=== PATIENT | female | born 1970 | race Caucasian/White ===

== ENCOUNTER → 2019-10-23 12:28 | Outpatient (CLI) | payer BC, SELFPAY ==
--- NOTE | ~2019-10-23 | MM_ITS ---
EXAMINATION: MM screening [facility] BI w olayinka HISTORY: Screening mammogram TECHNIQUE: Craniocaudal and mediolateral oblique 3-D tomosynthesis images were obtained and synthetic 2-D images were generated. CAD analysis was submitted and interpreted. COMPARISON: 10/18/2018, 10/07/1917, 10/14/2016 BREAST PARENCHYMAL COMPOSITION: There are scattered areas of fibroglandular density. FINDINGS: There is a chronic and unchanged asymmetry in the middle third of the left breast on the cr aniocaudal view. There is no evidence of suspicious mass, calcification, or architectural distortion to suggest malignancy in either breast. There has been no suspicious interval change. IMPRESSION: 1. No mammographic evidence of malignancy. 2. Recommend routine screening mammography in one year. BI-RADS Category 2: Benign finding(s). Reviewed, dictated and finalized at location A. LAMINATOR
== END ==
PROVIDERS: PCP Nurse Practitioner Adult Health; Visit Provider Nurse Practitioner
DX: Z12.31 Encounter for screening mammogram for malignant neoplasm of breast (principal)
CPT/HCPCS: 77063; 77067

== ENCOUNTER → 2020-11-02 14:01 | Outpatient (CLI) | payer BC, SELFPAY ==
--- NOTE | ~2020-11-02 | MM_ITS ---
EXAMINATION: MM screening amber BI w olayinka HISTORY: Screening TECHNIQUE: Craniocaudal and mediolateral oblique 3-D tomosynthesis images were obtained and synthetic 2-D images were generated. CAD analysis was submitted and interpreted. COMPARISON: Comparison to multiple prior studies sequentially, with oldest reviewed study dated 10/12. BREAST PARENCHYMAL COMPOSITION: Breast composed of scattered areas of fibroglandular density. FINDINGS: There is no evidence of suspicious mass, calcification, or architectural distortion to sugg est malignancy in either breast. There has been no suspicious interval change. IMPRESSION: 1. No mammographic evidence of malignancy. 2. Recommend routine screening mammography in one year. BI-RADS Category 1: Negative Reviewed, dictated and finalized at location A. DROGENATION OPERATOR
== END ==
PROVIDERS: PCP Nurse Practitioner Adult Health; Visit Provider Nurse Practitioner
DX: Z12.31 Encounter for screening mammogram for malignant neoplasm of breast (principal)
CPT/HCPCS: 77063; 77067

== ENCOUNTER → 2021-09-20 13:25 | Outpatient (CLI) | payer BC, SELFPAY ==
--- NOTE | ~2021-09-20 | US_ITS ---
EXAMINATION: US pelvic complete EXAM DATE: 09/20/2021 13:46 INDICATION: Abnormal uterine bleeding. TECHNIQUE: Pelvic transabdominal sonogram was performed. There are multiple grayscale and Doppler im ages available for interpretation. There is no prior study for comparison. FINDINGS: Uterus measures 9.7 x 4.4 x 5.5 cm, and is morphologically normal. Endometrial stripe ant sures 15 mm, within normal limits for premenopausal status. There is a nabothian cyst measuring 1.9 c m. There is no free pelvic fluid. Right adnexa: The ovary measures 2.9 x 1.8 x 2.2 cm and is morphologically normal. Ovarian vascular f low confirmed. Left adnexa: The ovary measures 2.6 x 1.8 x 2.4 cm and is morphologically normal. Ovarian vascular fl ow confirmed. IMPRESSION: Unremarkable pelvic ultrasound exam. Reviewed, dictated and finalized at location A. RVISOR POLISHING
== END ==
PROVIDERS: Visit Provider Nurse Practitioner
DX: N93.8 Other specified abnormal uterine and vaginal bleeding (principal)
CPT/HCPCS: 76856

== ENCOUNTER → 2021-11-08 13:18 | Outpatient (CLI) | payer BC, SELFPAY ==
--- NOTE | ~2021-11-08 | MM_ITS ---
EXAMINATION: MM screening amber BI w olayinka HISTORY: Screening mammogram TECHNIQUE: Craniocaudal and mediolateral oblique 3-D tomosynthesis images were obtained and synthetic 2-D images were generated. CAD analysis was submitted and interpreted. COMPARISON: November 02, 2020, October 23, 2019, October 18, 2018 bilateral screening mammogram exami [facility] to BREAST PARENCHYMAL COMPOSITION: There are scattered areas of fibroglandular density. FINDINGS: There is asymmetry in the inner aspect of the outer left breast at mid depth on craniocauda l projection, very possibly summation shadow of overlying fibroglandular content; diagnostic left amber mogram is recommended to exclude any possible mass. There is a 4.4 mm nodular density at the posterior margin of the outer left breast on CC projection; rotated craniocaudal view is recommended for further evaluation. Otherwise there is no evidence of suspicious mass, calcification, or architectural distortion to sugg est malignancy in either breast. There has been no other suspicious interval change. IMPRESSION: Left breast mass density; diagnostic left mammogram is recommended, with ultrasound if required BI-RADS Category 0: Incomplete: Needs additional imaging evaluation. Reviewed, dictated and finalized at location A. ETIC GEAR CUSTODIAN IMPRESSION: Left breast mass density; diagnostic left mammogram is recommended, with ultras ound if required BI-RADS Category 0: Incomplete: Needs additional imaging evaluation.
== END ==
PROVIDERS: PCP Nurse Practitioner Adult Health; Visit Provider Nurse Practitioner
DX: Z12.31 Encounter for screening mammogram for malignant neoplasm of breast (principal); R92.8 Other abnormal and inconclusive findings on diagnostic imaging of breast
CPT/HCPCS: 77063; 77067

== ENCOUNTER → 2021-11-19 07:48 | Outpatient (CLI) | payer BC, SELFPAY ==
--- NOTE | ~2021-11-19 | MMUS_ITS ---
EXAMINATION: MM diagnostic amber LT w olayinka, US breast LT limited HISTORY: Left breast asymmetry and left breast mass on screening mammogram TECHNIQUE: Additional 3-D tomosynthesis images of the left breast were performed and synthetic 2-D im ages were generated. CAD analysis was submitted and interpreted. High resolution limited left breast ultrasound was performed. COMPARISON: Prior mammograms dating back to 10/14/2016 FINDINGS: MAMMOGRAPHIC FINDINGS: There is a return to baseline fibroglandular appearance with spot compression of the left breast in t he area of the asymmetry identified on screening mammogram. There is a 6 mm oval, circumscribed, equa l density mass in the far posterior third of the outer breast at the 3:00 location 16 cm from the nip ple. No associated architectural distortion or suspicious calcification are identified. ULTRASOUND: There is no evidence of focal abnormal solid or cystic mass in the vicinity of the mass identified in the posterior third of the outer breast. IMPRESSION: 1. Probably benign left breast mass. 2. Recommend 6 month follow-up left diagnostic mammogram with possible ultrasound. BI-RADS category 3, probably benign findings. Reviewed, dictated and finalized at location A. CITOR REPAIRER IMPRESSION: 1. Probably benign left breast mass. 2. Recommend 6 month follow-up left diagnostic mammogram with possible ultrasou nd. BI-RADS category 3, probably benign findings.
== END ==
PROVIDERS: PCP Nurse Practitioner Adult Health; Visit Provider Obstetrics & Gynecology Gynecology
DX: R92.8 Other abnormal and inconclusive findings on diagnostic imaging of breast (principal)
CPT/HCPCS: 76642; 77061; 77065; G0279

== ENCOUNTER 2022-01-24 00:39 | Day surgery (SDC) | payer BC, SELFPAY ==
[2022-01-06 08:50] VITALS: BMI 28.0
--- NOTE | 2022-01-21 15:08 | PM.HPGS ---
History of Present Illness History of Present Illness Consent: Risks, benefits, and alternatives have been discussed and questions answered. Patient agrees to proceed with procedure. Chief complaint: family hx of colon ca Narrative: Amy Caraballo is a 51 year old female Referred for colon cancer screening. her father had colon cancer. She had a small polyp removed from the rectum 5 years ago. Review of Systems Review of Systems: All systems reviewed & are unremarkable except as noted in HPI and below PMFSH Family History Family History Grandparent Carcinoma of colon Family history of Hodgkin's lymphoma Father Family history of diabetes mellitus in first degree relative Mother Family history of emphysema Other Family history of malignant neoplasm of male breast Social History Social History Smoking status: Never smoker Alcohol intake: never Substance use: never Substance use type: does not use Living arrangements: with family Spiritual care concerns: No Meds Home Medications and Allergies Home Medications Medication Instructions Recorded Confirmed Type escitalopram oxalate 5 mg PO DAILY 01/06/22 01/06/22 History levothyroxine 100 mcg PO DAILY 01/06/22 01/06/22 History omeprazole 20 mg PO DAILY 01/06/22 01/06/22 History Allergies Allergy/AdvReac Type Severity Reaction Status Date / Time No Known Allergies Allergy Unknown Verified 01/06/22 09:03 Exam Resp: Auscultation: clear to auscultation bilaterally Cardio: Rate: regular rate Rhythm: regular rhythm GI: GI Palp: Yes Soft to palpation and No Tenderness to palpation present (GI) Assessment and Plan Assessment and plan (1) Colon cancer screening: Code(s): Z12.11 - Encounter for screening for malignant neoplasm of colon Status: Acute Assessment and Plan: Colonoscopy with possible biopsy or polypectomy or cautery or injection of substances.
[2022-01-24 07:09] VITALS: BP 126/86; PULSE 75; RESP 17; TEMP 36.3; O2SAT 98
--- NOTE | 2022-01-24 07:11 | SUR.PREOP ---
PER DR. LIMON, OKAY TO NOT DO UPREG ON PATIENT PRIOR TO PROCEDURE
[2022-01-24] MEDS: LACTATED RINGERS 1,000 ML 150 ML IV CONT (07:18)
--- NOTE | 2022-01-24 07:50 | P.PNAN_ITS ---
Anes - Initial Pre Proc Eval Procedure: Operation Date: 01/24/22 08:00 Proposed Procedures p Screening Colonoscopy - Daniel Stewart MD Date/Time: 01/24/22 07:50 Surgeon: Daniel Stewart MD Pre Op Diagnosis: family hx of colon ca Patient Data Age: 51 Gender: F Height: 1.68 m Weight: 77 kg Last Vital Signs Temp 97.3 F L 01/24/22 07:09 Pulse 75 01/24/22 07:09 Resp 17 01/24/22 07:09 BP 126/86 01/24/22 07:09 Pulse Ox 98 01/24/22 07:09 Allergies Allergy/AdvReac Type Severity Reaction Status Date / Time No Known Allergies Allergy Unknown Verified 01/24/22 07:07 Home Medications Medication Instructions Recorded Confirmed Type escitalopram oxalate 5 mg PO DAILY 01/06/22 01/06/22 History levothyroxine 100 mcg PO DAILY 01/06/22 01/06/22 History omeprazole 20 mg PO DAILY 01/06/22 01/06/22 History Patient hx anesthesia problems: none Family hx anesthesia problems: none Results Review: All pre-operative results and documents have been reviewed as part of the pre-operative evaluation. [facility] Family History Family History Grandparent Carcinoma of colon Family history of Hodgkin's lymphoma Father Family history of diabetes mellitus in first degree relative Mother Family history of emphysema Other Family history of malignant neoplasm of male breast Social History Social History Smoking status: Never smoker Alcohol intake: never Substance use: never Substance use type: does not use Living arrangements: with family Spiritual care concerns: No Anes - Eval Final PreProcedure Day of Procedure 01/24/22 07:50 Patient weight: normal Heart: regular rate and rhythm Airway: Mallampati scale class II Neurological: alert and oriented Last oral intake: >/= 8 hours ASA classification: II Emergent: no Anesthetic plan: proceed Anesthesia type and monitoring: general GIVS and standard monitoring Results Review: All pre-operative results and documents have been reviewed as part of the pre-operative evaluation. Informed Consent: The patient's anesthetic plan and its attendant risks and benefits were discussed with the patient/family/POA. Questions were solicited and answers provided to the satisfaction of the patient/family/POA.
[2022-01-24 08:14] VITALS: BP 85/52; PULSE 65; RESP 24; O2SAT 97
[2022-01-24 08:24] VITALS: BP 101/61; PULSE 57; RESP 22; O2SAT 97
[2022-01-24 08:34] VITALS: BP 112/81; PULSE 70; RESP 23; O2SAT 98
== END 2022-01-24 08:40 | disposition home or self-care (01) ==
PROVIDERS: PCP Nurse Practitioner Adult Health; Visit Provider Internal Medicine Gastroenterology
PROC: 0DJD8ZZ Inspection of Lower Intestinal Tract, Via Natural or Artificial Opening Endoscopic (ICD-10-PCS; CPT 45378; principal; 2022-01-24 08:00)
DX: Z12.11 Encounter for screening for malignant neoplasm of colon (principal); D12.5 Benign neoplasm of sigmoid colon; Z80.0 Family history of malignant neoplasm of digestive organs
CPT/HCPCS: 45380; 88305; J2704; J7120

== ENCOUNTER → 2022-05-24 07:44 | Outpatient (CLI) | payer BC, SELFPAY ==
--- NOTE | ~2022-05-24 | MM_ITS ---
EXAMINATION: MM diagnostic amber LT w olayinka HISTORY: Six-month follow-up of 6 mm echodensity circumscribed mass in the far posterior third in the outer breast at 3:00 16 cm from nipple on 11/2021 diagnostic left mammogram TECHNIQUE: Additional 3-D tomosynthesis images of the left breast were performed and synthetic 2-D im ages were generated. Rolled medial and lateral craniocaudal views. CAD analysis was submitted and int erpreted. COMPARISON: 11/19/2021 diagnostic left mammogram and limited left breast ultrasound 11/08/2021, 11/02/2020, 10/23/2019, 10/18/2018 bilateral screening mammogram examinations FINDINGS: Benign-appearing circumscribed approximately 5.7 mm opacity is noted in the deep posterior outer mid left breast, unchanged since 11/19/2021, most consistent with benign intramammary lymph nodes .. No other suspicious mass, architectural distortion, malignant constipation, skin thickening or retrac tion or significant new or developing density is evident. IMPRESSION: 1. Benign appearing stable posterior mid outer left intramammary lymph node; no mammographic evidence of malignancy 2. Routine annual mammographic screening is recommended BI-RADS Category 2: Benign finding(s). Reviewed, dictated and finalized at location A.
== END ==
PROVIDERS: PCP Nurse Practitioner Adult Health; Visit Provider Obstetrics & Gynecology Gynecology
DX: N63.20 Unspecified lump in the left breast, unspecified quadrant (principal)
CPT/HCPCS: 77061; 77065; G0279

== ENCOUNTER → 2022-10-04 08:46 | Outpatient (CLI) | payer BC, SELFPAY ==
--- NOTE | ~2022-10-04 | MMUS_ITS ---
EXAMINATION: MM diagnostic amber RT w olayinka, US axilla RT HISTORY: Right axillary fullness TECHNIQUE: Craniocaudal, mediolateral, and mediolateral oblique 3-D tomosynthesis images of the right breast were performed and synthetic 2-D images were generated. CAD analysis was submitted and interp reted. High resolution limited right breast ultrasound was performed. COMPARISON: 11/08/2021, 11/02/2020, 10/23/2019 BREAST PARENCHYMAL COMPOSITION: There are scattered areas of fibroglandular density. FINDINGS: MAMMOGRAPHIC FINDINGS: No suspicious mass, calcification, or architectural distortion are identified malignancy. There has been no suspicious interval change. No mammographic correlate is identified for the reported fullnes s of the right axilla. ULTRASOUND: There is no evidence of focal abnormal solid or cystic mass in the vicinity of the reported fullness of the right axilla. IMPRESSION: 1. No specific mammographic or sonographic correlate is identified for the reported fullness of the r ight axilla. Further evaluation at this time should be based on clinical assessment. Continued follow -up physical examination is recommended. 2. Routine screening mammography is recommended, due on the left in one month. BI-RADS Category 1: Negative Reviewed, dictated and finalized at location A. MATION TECH IMPRESSION: 1. No specific mammographic or sonographic correlate is identified for the repo rted fullness of the right axilla. Further evaluation at this time should be ba sed on clinical assessment. Continued follow-up physical examination is recomme nded. 2. Routine screening mammography is recommended, due on the left in one month. BI-RADS Category 1: Negative
== END ==
PROVIDERS: PCP Nurse Practitioner Family; Visit Provider Nurse Practitioner
DX: M79.89 Other specified soft tissue disorders (principal)
CPT/HCPCS: 76882; 77061; 77065; G0279

== ENCOUNTER → 2023-06-03 11:08 | Outpatient (CLI) | payer BC, SELFPAY ==
--- NOTE | ~2023-06-03 | MM_ITS ---
EXAMINATION: MM screening amber BI w olayinka HISTORY: Screening mammogram TECHNIQUE: Craniocaudal and mediolateral oblique 3-D tomosynthesis images were obtained and synthetic 2-D images were generated. CAD analysis was submitted and interpreted. COMPARISON: 10/04/2022 diagnostic right mammogram, right axillary ultrasound 05/24/2022 diagnostic left mammogram 12/05/2021 diagnostic left mammogram and limited left breast ultrasound Minimal , bilateral screening mammogram examinations BREAST PARENCHYMAL COMPOSITION: There are scattered areas of fibroglandular density. FINDINGS: There is no evidence of suspicious mass, calcification, or architectural distortion to sugg est malignancy in either breast. There has been no suspicious interval change. IMPRESSION: 1. No mammographic evidence of malignancy. 2. Recommend routine screening mammography in one year. BI-RADS Category 1: Negative Reviewed, dictated and finalized at location A.
== END ==
PROVIDERS: PCP Nurse Practitioner Family; Visit Provider Nurse Practitioner
DX: Z12.31 Encounter for screening mammogram for malignant neoplasm of breast (principal)
CPT/HCPCS: 77063; 77067

== ENCOUNTER 2023-06-20 02:04 | Observation (INO) | payer BC, SELFPAY ==
[2023-06-20] VITALS (25 sets, daily range): BP systolic 91–125; BP diastolic 53–83; PULSE 62–120; RESP 15–24; TEMP 36.1–37.4; O2SAT 94–97; BMI 26.4
--- NOTE | 2023-06-20 | ECHO_ITS ---
Patient Info Name: Amy Caraballo Age: 53 years : 1970 Gender: Female Ht: 67 in Wt: 170 lbs BSA: 1.92 m2 HR: 83 bpm BP: 109 / 60 mmHg Heart Rhythm: Sinus Rhythm Technical Quality: Fair Exam Date: 06/20/2023 1:54 PM Exam Location: [facility] Card Pulmonary Patient Status: Outpatient Admit Date: 06/20/2023 Staff Ordering Physician: Sunny Del Castillo MD Sand Car Worker: Lety Quiroz RDCS Attending Provider: Garui Atkins DO Exam Type: CA echo doppler color flow Study Info Indications R55 - Syncope and collapse Complete two-dimensional, color flow and Doppler transthoracic echocardiogram is performed. Summary 1. Complete two-dimensional, color flow and Doppler transthoracic echocardiogram is performed. 2. Normal left ventricular size and thickness with hyperdynamic left ventricular contractility. No segmental wall motion abnormalities. Ejection fraction greater than 70%. Normal diastolic function. 3. No significant valve disease. 4. Normal sinus rhythm. Left Ventricle Left ventricular chamber dimension is normal. Left ventricular systolic function is hyperdynamic, estimated at >70%. There is no increased left ventricular wall thickness. Left ventricular septal wall motion is normal. The left ventricular diastolic function is normal. Right Ventricle Right ventricular chamber dimension is normal. Right ventricular systolic function is normal. Left Atria Left atrial chamber dimension is normal. Right Atria Right atrial chamber dimension is normal. Aortic Valve The aortic valve is trileaflet. There is no aortic valve sclerosis. There is no aortic valve stenosis. There is no aortic valve regurgitation. Pulmonic Valve The pulmonic valve is normal. There is no pulmonic valve stenosis. There is no pulmonic regurgitation. Mitral Valve The mitral valve has normal leaflets. There is no mitral valve stenosis. There is trace mitral valve regurgitation. Tricuspid Valve The tricuspid valve leaflets are normal. There is no significant tricuspid valve stenosis. There is trace tricuspid valve regurgitation. No pulmonary hypertension, estimated pulmonary arterial systolic pressure is Empty. Pericardium/Pleural The pericardium appears normal. There is no pericardial effusion. Inferior Vena Cava Normal inferior vena cava with >50% collapse upon inspiration consistent with Empty right atrial pressure, Empty. Aorta The aortic root size at the sinus of Valsalva is normal. The prox ascending aorta size is normal. Left Ventricular Outflow Tract Name Value Normal LVOT 2D LVOT Diameter 2.0 cm LVOT Doppler LVOT Peak Gradient 8 mmHg LVOT Mean Gradient 4 mmHg LVOT VTI 27 cm LVOT VTI/AV VTI Ratio 0.9 LVOT Stroke Volume 82 ml LVOT CO 16.6 l/min LVOT CI 8.6 l/min/m2 Pulmonic Valve Name Value Normal
--- NOTE | ~2023-06-20 | NM_ITS ---
EXAMINATION: NM stress w perf spect multi DATE: 06/21/2023 10:03 INDICATION: Abnormal EKG TECHNIQUE: Rest images were obtained following intravenous administration of 11.2 mCi Tc99m tetrofosm in (Myoview). The patient performed an exercise activity. At peak exercise, 30.3 mCi Tc99m tetrofosmi n (Myoview) was administered intravenously, and stress images were obtained. Data was reconstructed i nto short axis and horizontal and vertical long axis SPECT images. Gated SPECT images were also obtai devonte. COMPARISON: None. FINDINGS: There is normal left ventricular perfusion without definite evidence of reversible or fixed perfusion abnormality to suggest ischemia or infarction. There is normal left ventricular chamber size, wall motion and ejection fraction. Left ventricular ejection fraction measures >70%. IMPRESSION: 1. Normal myocardial perfusion at rest and during stress. 2. Left ventricular ejection fraction measuring >70%. Reviewed, dictated and finalized at location A.
--- NOTE | ~2023-06-20 | XR_ITS ---
Portable chest x-ray Comparison: None Clinical History: Cough Findings: Lungs are clear, without focal consolidation or pleural effusion. Cardiomediastinal silho uette is unremarkable. Bones and soft tissues are unremarkable. Impression: No significant abnormality seen. Reviewed, dictated and finalized at [facility]. Impression: No significant abnormality seen.
--- NOTE | ~2023-06-20 | CT_ITS ---
EXAMINATION: CTA chest PE protocol DATE: 06/20/2023 20:32 INDICATION: Chest pain. Tachycardia. TECHNIQUE: Computed tomography angiography (CTA) of the chest was performed with 100 mL Omnipaque-350 intravenous contrast timed to evaluate the pulmonary arteries. Coronal maximum intensity projection 3D-reconstructions were created by the technologist. Automated exposure control and iterative reconst ruction technique were employed. The dose-length product was 313.47 mGy-cm. COMPARISON: None. FINDINGS: This is septal thickening in the lungs, consistent with mild pulmonary edema. No pleural ef fusion. There is a small sliding hiatal hernia. The heart size is normal. No pericardial effusion. Ca lcified left hilar lymph nodes are consistent with old granulomatous disease. There is no pulmonary e mbolus. There is mild thoracic spondylosis. IMPRESSION: 1. Mild pulmonary edema. 2. No pulmonary embolus. 3. Small sliding hiatal hernia. Reviewed, dictated and finalized at location E.
--- NOTE | 2023-06-20 02:12 | ECG_ITS ---
Measurements Intervals [place] Rate: 121 P: 62 AR: 171 QRS: 52 QRSD: 85 T: 69 QT: 410 QTc: 583 Interpretive Statements SINUS TACHYCARDIA POSSIBLE RIGHT VENTRICULAR CONDUCTION DELAY [RSR (QR) IN V1/V2] ST DEVIATION AND MODERATE T-WAVE ABNORMALITY, CONSIDER LATERAL ISCHEMIA [-0.1+ mV T- WAVE IN I/aVL/V5/V6] NO PREVIOUS ECG AVAILABLE FOR COMPARISON Electronically Signed On 06-20-2023 12:19:03 CDT by Brie Bender M.D.
[2023-06-20 02:38] LABS: Basophils Percent Auto 0.1 % (0.2-1.2); Eosinophils Absolute Auto 0.2 K/mm3 (0-0.3); Eosinophils Percent Auto 2.1 % (0-4.4); Hematocrit 40.5 % (37.0-47.0); Hemoglobin 12.8 g/dL (12.0-15.0); Immature Granulocyte Absolute 0.02 K/mm3 (0.00-0.031); Immature Granulocyte Percent A 0.3 % (0-0.5); Lymphocytes Absolute Auto 0.48 K/mm3 (0.9-3.2); Lymphocytes Percent Auto 6.8 % (18.3-44.2); Mean Corpuscular HGB Conc 31.6 g/dl (32-36); Mean Corpuscular Hemoglobin 26.7 pg (26-34); Mean Corpuscular Volume 84.6 fl (80-100); Mean Platelet Volume 10.4 fl (7.4-10.4); Monocytes Absolute Auto 0.4 K/mm3 (0.1-0.6); Monocytes Percent Auto 5.1 % (2.6-8.5); Neutrophils Percent Auto 85.6 % (45.5-73.1); Platelet Count Result 201 k/mm3 (150-375); Red Blood Count 4.79 M/mm3 (4.2-5.4); Red Cell Distribution Width 16.2 % (11.5-14.5); White Blood Count 7.1 K/mm3 (4.5-10.0)
[2023-06-20 03:25] LABS: Alanine Aminotransferase 31 U/L (6-35); Alkaline Phosphatase 63 U/L (38-126); Anion Gap 10 mmol/L (8-16); Aspartate Amino Transferase 43 U/L (14-36); Bilirubin,Total 1.2 mg/dL (0.2-1.3); Blood Urea Nitrogen 9 mg/dL (7-17); Calcium 9.3 mg/dL (8.4-10.2); Carbon Dioxide 22 mmol/L (22-30); Chloride 106 mmol/L (98-107); Estimated CRCL calculation 77 ml/min; Estimated Glomerular Filt Rate > 60; Glucose 146 mg/dL (65-110); Potassium 3.8 mmol/L (3.4-5.0); Sodium 138 mmol/L (137-145)
--- NOTE | 2023-06-20 03:45 | ED.GENADULT ---
HPI - General Adult General Chief complaint: Syncope Stated complaint: flu like symptoms Time Seen by Provider: 06/20/23 03:16 History of Present Illness HPI narrative: Patient brought to the emergency department by EMS after syncopal episode at home. She has had flulike symptoms since yesterday with headache body aches fatigue nausea and vomiting. She also has a cough with chest discomfort when coughing or moving. In the middle of the night she was unresponsive on the bathroom floor per her . He states her eyes were glazed over and she was too weak to stand on her own. She collapsed to the ground knocking over the bathroom cabinet. Patient denies cardiac history. Her initial EKG shows sinus tachycardia with ST depression and T wave inversion lateral leads. Patient is alert but appears sick. Related Data Home Medications Medication Instructions Recorded Confirmed escitalopram oxalate 5 mg tablet 5 mg PO DAILY 01/06/22 02/22/23 levothyroxine 100 mcg tablet 100 mcg PO DAILY 01/06/22 02/22/23 omeprazole 20 mg capsule,delayed 20 mg PO DAILY 01/06/22 02/22/23 release alprazolam 1 mg tablet 1 mg PO DAILY 02/22/23 02/22/23 celecoxib 200 mg capsule 200 mg PO DAILY 02/22/23 02/22/23 cholecalciferol (vitamin D3) 25 25 mcg PO DAILY 02/22/23 02/22/23 mcg (1,000 unit) capsule ferrous sulfate 325 mg (65 mg 325 mg PO DAILY 02/22/23 02/22/23 iron) tablet progesterone micronized 200 mg 200 mg PO QHS 02/22/23 02/22/23 capsule vitamin B complex (B 1 tablet PO DAILY 02/22/23 02/22/23 Complex-Vitamin B12 tablet) Allergies Allergy/AdvReac Type Severity Reaction Status Date / Time duloxetine [From Cymbalta] AdvReac Nausea Verified 02/22/23 10:10 Review of Systems Review of Systems: Review of systems negative except what is documented in the HPI [facility] Family History Family History Grandparent Carcinoma of colon Family history of Hodgkin's lymphoma Father Family history of diabetes mellitus in first degree relative Mother Family history of emphysema Other Family history of malignant neoplasm of male breast Social History Social History Smoking status: Never smoker Alcohol intake: never Substance use: never Substance use type: does not use Living arrangements: with family Spiritual care concerns: No Exam Narrative: GENERAL: Well-appearing, well-nourished, and in no acute distress. HEAD: Normocephalic, atraumatic. EYES: PERRLA and EOMI. ENT: Nares clear, no rhinorrhea or epistaxis. Mucous membranes moist. NECK: Supple. CHEST: Clear to auscultation. No respiratory distress. HEART: Regular rhythm. Tachycardic ABDOMEN: Soft, nontender, nondistended. EXTREMITIES: Normal range of motion. No edema. SKIN: Warm, dry, no rash. NEURO: No focal deficits. Alert and oriented x3. PSYCH: Normal mood and affect. Course Course Emergency Course: Differential diagnosis includes but not limited to viral illness, pneumonia, COVID, cardiac, electrolyte abnormality, dehydration Telemetry ordered due to syncope and tachycardia to evaluate for dysrhythmias. Evaluated by myself. Rhythm sinus tach Rate 110 Vital Signs Vital signs: Vital Signs Temperature 36.8 C 06/20/23 02:13 Pulse Rate 120 H 06/20/23 02:13 Respiratory Rate 16 06/20/23 02:13 Blood Pressure 114/74 06/20/23 02:13 Pulse Oximetry 94 06/20/23 02:13 Temperature 37.4 C 06/20/23 03:00 Pulse Rate 96 06/20/23 05:22 Respiratory Rate 21 H 06/20/23 04:09 Blood Pressure 109/69 06/20/23 05:22 Pulse Oximetry 94 06/20/23 04:09 Oxygen Delivery Room Air 06/20/23 02:59 Medical Decision Making MDM Narrative Medical decision making narrative: CBC ordered and normal Patient's heart rate has improved to 97 after normal saline bolus COVID and flu swabs pending Chest x-ray read by [email or web address]
[2023-06-20] MEDS: SODIUM CHLORIDE 0.9% IV 1,000 ML 999 ML IV CONT ×2 (03:50→03:55)
[2023-06-20] MEDS: ONDANSETRON INJ 4 MG/2 ML VIAL IV PUSH (03:50)
[2023-06-20] MEDS: KETOROLAC 30 MG/ML VIAL (*BKC) IM (03:51)
[2023-06-20 04:23] LABS: Troponin I 0.029 ng/mL (0.000-0.034)
[2023-06-20 04:57] LABS: Influenza A QL RT-PCR Negative (Negative); Influenza B QL RT-PCR Negative (Negative); RSV RNA, RT-PCR Negative (Negative); SARS-CoV-2 RNA PCR Negative (Negative)
[2023-06-20 07:11] LABS: Troponin I < 0.012 ng/mL (0.000-0.034)
[2023-06-20 09:18] LABS: Appearance Urine Clear (Clear); Bilirubin Urine Negative (Negative); Blood Urine Negative (Negative); Color Urine Yellow (Yellow); Glucose Urine UA Negative (Negative); Ketones Urine 1+ mg/dL (Negative); Leukocyte Esterase Ur Negative LEU/UL (Negative); Nitrate Urine Negative (Negative); Protein Urine Negative (Negative); Specific Grav Ur 1.008 (1.001-1.035); Urobilinogen Urine 0.2 mg/dL (<2.0)
[2023-06-20 09:21] LABS: Add Urine Microscopic? NO
--- NOTE | 2023-06-20 09:54 | PM.IMHP ---
H&P: HPI History of Present Illness Date/Time: 06/20/23 09:54 Chief Complaint: Syncope Narrative: 53yo female with anxiety, DDD and hypothyroidism was brought into the emergency room by EMS after having a syncopal episode at home. Patient was feeling well up until the day before admission when she had body aches, frontal headaches and nausea/vomiting. She also was having chills with feeling cold then becoming diaphoretic. She is postmenopausal with night sweats but states these symptoms are different. No fevers. Patient awoke around 1:00 a.m. on the morning of admission due to nausea. She walked to the bathroom where she had a syncopal episode. She knocked over the bathroom table. Patient denied that she had chest pain or shortness of breath prior to the event. No tunnel vision. No dizziness. She did become lightheaded when she did get into the bathroom. She thinks she hit her forehead when she fell. She called out to her . Unclear if she had a complete syncopal episode. On 's arrival, patient had incoherent speech and was talking gibberish. helped her to the toilet because patient's was able to state that she needed to void. There was no tongue biting or urine incontinence. After she voided patient had a syncopal episode where she fell forward. helped her to the floor. Patient was confused with mumbled speech. stays eyes were rolling upward. Symptoms lasted 4-5 minutes. Patient had syncopal episodes in her early 20s with blood drawing and overheating but nothing since that time. Patient does not drink alcohol. She has no history of drug use. She no longer takes the alprazolam. She is not on any scheduled or p.r.n. narcotics. Patient has had about a 10 lb weight loss over the past few months but she has been trying to lose weight. No complaints of palpitations. No history of coronary disease. She has never had a stress test. No sleep apnea. Patient is prediabetic but does not check her glucose at home. She does state that she was eating normally yesterday despite the nausea and vomiting. No dysuria or hematuria. She did have a recent UTI and completed nitrofurantoin the day before this admission. Patient has a cough with deep breathing. No pleuritic chest pain. No pedal edema. No calf pain. She was in [place] about a month ago. EMS was called and patient was brought to the emergency room for evaluation. In the emergency room, patient was tachycardic at 120. Vital signs otherwise were stable. She was not hypoxic. Bedside test was negative. COVID, RSV and influenza PCR were negative. She was not orthostatic. EKG showed sinus tachycardia with ST-T wave changes in the lateral and high lateral leads. QTC is 583 although suspect inaccurate and more likely less than 400. Chest x-ray was clear. CBC was normal. CMP normal except for glucose of 146 an AST of 43. Troponin negative x2. Urinalysis was clear. Patient was treated with Zofran and Toradol. She was given IV fluids. Heart rate has improved. She was admitted to the IMU for further care. Review of Systems Review of Systems: All systems reviewed & are unremarkable except as noted in HPI and below PMFSH Past Medical History Medical History (Updated 06/20/23 @ 10:24 by Sunny Del Castillo MD) DDD (degenerative disc disease) Depression with anxiety GERD (gastroesophageal reflux disease) Hypothyroidism Pre-diabetes Surgical History Surgical History (Updated 06/20/23 @ 10:13 by Sunny Del Castillo MD) No history of previous surgery Family History Family History Grandparent Family history of diabetes mellitus in first degree relative Family history of Hodgkin's lymphoma Carcinoma of colon Father Family history of diabetes mellitus in first degree relative Mother Heart disease Family history of emphysema Acute myocardial infarction Other Fam
[2023-06-20 10:31] LABS: Lactic Acid Reflex 1.2 mmol/L (0.7-2.0)
--- NOTE | 2023-06-20 10:31 | ECG_ITS ---
Measurements Intervals [place] Rate: 78 P: 63 [place]: 172 QRS: 45 QRSD: 80 T: 140 QT: 371 QTc: 425 Interpretive Statements SINUS RHYTHM ST DEVIATION AND MODERATE T-WAVE ABNORMALITY, CONSIDER ANTEROLATERAL ISCHEMIA [-0.1+ mV T WAVE IN V3-V6] COMPARED TO ECG 06/20/2023 02:18:11 SINUS RHYTHM NOW PRESENT Electronically Signed On 06-20-2023 12:43:32 CDT by Brie Bender M.D.
[2023-06-20 10:44] LABS: Troponin I < 0.012 ng/mL (0.000-0.034)
[2023-06-20 11:08] LABS: Procalcitonin 0.2 ng/mL
[2023-06-20 11:24] LABS: Hemoglobin A1C 5.3 % (<5.7)
[2023-06-20 12:06] LABS: Glucose Point of Care 89 mg/dl (65-105)
[2023-06-20 12:20] LABS: Thyroid Stimulating Hormone Reflex 0.048 uIU/mL (0.465-4.68)
[2023-06-20 12:23] LABS: Amphetamine Screen Urine Negative (Negative); Barbiturate Screen Urine Negative (Negative); Benzodiazepines Screen Urine Negative (Negative); Cannabinoid Screen Urine Negative (Negative); Cocaine Screen Urine Negative (Negative); Methadone Screen Urine Negative (Negative); Opiate Screen Urine Negative (Negative); Phencyclidine Screen Urine Negative (Negative)
[2023-06-20] MEDS: PANTOPRAZOLE 40 MG TABLET PO (12:44)
[2023-06-20 12:45] LABS: Free T4 Free Thyroxine Reflex 1.64 ng/dL (0.78-2.19)
[2023-06-20] MEDS: FERROUS SULFATE 325 MG TABLET DR PO (12:45)
--- NOTE | 2023-06-20 13:23 | PM.CNCAR ---
Assessment and Plan Assessment and plan (1) Syncope: Qualifiers: Syncope type: unspecified Qualified Code(s): R55 - Syncope and collapse Code(s): R55 - Syncope and collapse Status: Acute Assessment and Plan: Two syncopal events last night and she describes pre-syncope yesterday after picking tomatoes from her garden. Became light headed and diaphoretic after standing up. Symptoms resolved with lying down and elevating feet. She denies experiencing any chest pain or palpitations surrounding these events. Her telemetry shows sinus rhythm, no tachy or bradyarrhythmias noted thus far. Continue to monitor telemetry. Syncope most likely non cardiac and either vasovagal or secondary to orthostatic hypotension. Check orthostatic vital signs. Echo pending. In regards to her EKG, lateral T wave inversions are noted. She denies any chest pain but has a strong family history of coronary artery disease, so will obtain exercise nuclear stress test while in the hospital. Further recommendations to follow. History of Present Illness History of Present Illness Consult date/time: 06/20/23 13:23 Requesting physician: Sunny Del Castillo MD Consult reason: Other (syncope) Reason For Visit: Syncope Narrative: Amy Caraballo is a 53year old female with hypothyroidism, GERD, and prediabetes. She comes to the hospital because of two syncopal events last evening. Patient began feeling poorly yesterday afternoon with body aches, chills, and a headache. Last evening she got up out of bed to go to the bathroom because she felt nauseous and passed out in the bathroom. She called out for her who apparently found her unresponsive but she regained consciousness shortly thereafter. Then several minutes later she had another syncopal event while urinating and was unconscious for 5-6 minutes. She denies any chest pain, palpitations, shortness of breath. Review of Systems Review of Systems: All systems reviewed & are unremarkable except as noted in HPI and below PMFSH Past Medical History Medical History (Updated 06/20/23 @ 10:24 by Sunny Del Castillo MD) DDD (degenerative disc disease) Depression with anxiety GERD (gastroesophageal reflux disease) Hypothyroidism Pre-diabetes Surgical History Surgical History (Updated 06/20/23 @ 10:13 by Sunny Del Castillo MD) No history of previous surgery Family History Family History Grandparent Family history of diabetes mellitus in first degree relative Family history of Hodgkin's lymphoma Carcinoma of colon Father Family history of diabetes mellitus in first degree relative Mother Heart disease Family history of emphysema Acute myocardial infarction Other Family history of malignant neoplasm of male breast Social History Social History Social History: Patient lives at home with her and son. She is a lifelong nonsmoker. No history of drug use. Denies alcohol use. Full code. She nominates her to be the individual who would make medical decisions for her if she is unable. Smoking status: Never smoker Alcohol intake: never Substance use: never Substance use type: does not use Lack of Transportation: No Lack of Food: Never True Current Housing: I Have Housing Concerned About Future Housing: No Difficulty Paying Gas/Electric Bills: No Difficulty Paying for Meds: No Currently Unemployed: No Education: Decline to Answer Difficulty w/ Childcare or Family Care: No Living arrangements: with family Spiritual care concerns: No Meds Home Medications and Allergies Home Medications Medication Instructions Recorded Confirmed Type escitalopram oxalate 5 mg tablet 5 mg PO HS 01/06/22 06/20/23 History omeprazole 20 mg capsule,delayed 20 mg PO DAILY 01/06/22 06/20/23 History release celecox
[2023-06-20 13:35] LABS: Total Triiodothyronine (T3) 0.99 NG/ML (0.97-1.69)
[2023-06-20 16:44] LABS: Glucose Point of Care 113 mg/dl (65-105)
[2023-06-20 20:37] LABS: Glucose Point of Care 89 mg/dl (65-105)
[2023-06-21] VITALS (10 sets, daily range): BP systolic 117–128; BP diastolic 65–77; PULSE 54–89; RESP 14–16; TEMP 36.4–36.9; O2SAT 91–98
--- NOTE | 2023-06-21 | EST_ITS ---
Patient Info Name: Amy Caraballo Age: 53 years : 1970 Gender: Female Ht: 67 in Wt: 169 lbs BSA: 1.92 m2 HR: 74 bpm BP: 127 / 80 mmHg Heart Rhythm: Sinus Rhythm Exam Date: 06/21/2023 8:50 AM Exam Location: [facility] Stress Patient Status: Inpatient Admit Date: 06/20/2023 Staff Ordering Physician: Christina Stack Attending Provider: Gauri Atkins DO Exercise Technologist: Danielle Soler CT Exercise Physician: Adelia Conte MD Exam Type: CA stress test treadmill w NM Study Info Indications R07.89 - Other chest pain A nuclear stress test was performed. Summary 1. EKG nondiagnostic for ischemia. Rapidly upsloping ST segment depression in the face of resting EKG abnormalities. 2. Nuclear test results to follow. Protocol: Roberto Stress ECG Details Stage: REST Duration (min): 1 min : 4 sec Speed (mph): 0.0 Grade (%): 0 HR (bpm): 75 SBP (mmHg): 127 DBP (mmHg): 80 METS: --- Stage: REST Duration (min): 5 min : 45 sec Speed (mph): 0.0 Grade (%): 0 HR (bpm): 84 SBP (mmHg): 127 DBP (mmHg): 80 METS: --- Stage: STAGE 1 Duration (min): 1 min : 0 sec Speed (mph): 1.7 Grade (%): 10 HR (bpm): 128 SBP (mmHg): 127 DBP (mmHg): 80 METS: --- Stage: STAGE 1 Duration (min): 2 min : 0 sec Speed (mph): 1.7 Grade (%): 10 HR (bpm): 141 SBP (mmHg): 127 DBP (mmHg): 80 METS: --- Stage: STAGE 1 Duration (min): 3 min : 0 sec Speed (mph): 1.7 Grade (%): 10 HR (bpm): 147 SBP (mmHg): 150 DBP (mmHg): 91 METS: --- Stage: STAGE 2 Duration (min): 1 min : 0 sec Speed (mph): 2.5 Grade (%): 12 HR (bpm): 152 SBP (mmHg): 150 DBP (mmHg): 91 METS: --- Stage: STAGE 2 Duration (min): 1 min : 0 sec Speed (mph): 2.5 Grade (%): 12 HR (bpm): 152 SBP (mmHg): 150 DBP (mmHg): 91 METS: --- Stage: RECOVERY Duration (min): 0 min : 59 sec Speed (mph): 0.0 Grade (%): 0 HR (bpm): 125 SBP (mmHg): 139 DBP (mmHg): 80 METS: --- Stage: RECOVERY Duration (min): 1 min : 59 sec Speed (mph): 0.0 Grade (%): 0 HR (bpm): 97 SBP (mmHg): 139 DBP (mmHg): 80 METS: --- Stage: RECOVERY Duration (min): 2 min : 59 sec Speed (mph): 0.0 Grade (%): 0 HR (bpm): 86 SBP (mmHg): 146 DBP (mmHg): 75 METS: --- Stage: RECOVERY Duration (min): 3 min : 25 sec Speed (mph): 0.0 Grade (%): 0 HR (bpm): 85 SBP (mmHg): 146 DBP (mmHg): 75 METS: --- Rest HR: 84 bpm Peak HR: 152 bpm Rest Sys BP: 127 mmHg Peak Sys BP: 150 mmHg Max Pred HR: 166 bpm % Max Pred HR: 92 % Target HR: 141 bpm Max RPP: 22,800 bpm*mmHg Hall Score: -10 Target HR Summary: Patient's target heart rate was achieved BP Response: Normal blood pressure response Termination Reason: Dyspnea, Leg fatigue Cardiac Symptoms: None Max ST Seg Deviation: -3 mm Total Time: 4 min : 0 sec Rest [place] BP: 80 mmHg Peak [place] BP: 91 mmHg Angina Score: None Total METS: 6.5 Resting ECG
[2023-06-21] MEDS: LEVOTHYROXINE SODIUM 125 MCG TABLET PO (05:36)
[2023-06-21 08:29] LABS: Glucose Point of Care 91 mg/dl (65-105)
[2023-06-21] MEDS: ACETAMINOPHEN 325 MG TABLET 650 MG PO (10:09)
[2023-06-21] MEDS: PANTOPRAZOLE 40 MG TABLET PO (10:10)
--- NOTE | 2023-06-21 12:55 | PM.PNCARD ---
Progress Note: A&P Assessment and Plan (1) Syncope: Qualifiers: Syncope type: unspecified Qualified Code(s): R55 - Syncope and collapse Code(s): R55 - Syncope and collapse Status: Acute Assessment and Plan: Admitted with syncope in the setting of a viral illness with anorexia and episode of vomiting. Had somewhat of a soft blood pressure initially. However not orthostatic, and no arrhythmias have been noted on telemetry. Normal echo, no evidence of ischemia by stress testing. Likely vasovagal syncope related to her viral illness. (2) Abnormal EKG: Code(s): R94.31 - Abnormal electrocardiogram [ECG] [EKG] Status: Acute Assessment and Plan: Patient has an abnormal EKG but this may be her baseline. No evidence of ischemia or cardiomyopathy. Unclear if she truly has QT prolongation as she was tachycardic etc. at the time of the initial EKG. Follow-up EKG did not show QT prolongation but some nonspecific E ST and T changes. --recommend she follow-up with her primary care doctor and get a new baseline EKG. If she truly does have QT prolongation on Lexapro than that should be discontinued. (3) Family history of early CAD: Code(s): Z82.49 - Family history of ischemic heart disease and other diseases of the circulatory system Status: Acute Assessment and Plan: Strong genetic predisposition for coronary disease. Patient and are concerned about her personal risk of heart disease. --reassured that there does not appear to be any severe heart problems at this time. --follow-up with PMD to check cholesterol --reviewed signs or symptoms of acute coronary syndrome --discussed heart healthy living with heart healthy diet, exercise, etc.. Patient's exercise time was quite poor for age suggesting deconditioning although she still may be ill from her virus and that may be limiting her exercise tolerance. --Can follow-up with PMD and consider coronary calcium score to check for mild CAD which may prompt the patient to start statin therapy. Subjective Date/time seen: 06/21/23 12:55 Interval history: Patient had flu-like syndrome with myalgias nausea and vomiting and was admitted with syncope. 06/20/2023: Probable vasovagal syncope. Strong family history of CAD with some EKG abnormalities, ordered stress test. 06/21/2023: Feeling better although appetite is still not great. Blood pressure was somewhat soft yesterday, running in the 90s some of the time. Not orthostatic. EKG 06/20/2023: NSR rate 78, very slight T-wave inversion V3-V6, some T-wave changes inferiorly, may be nonspecific, personally Echo: 1. Complete two-dimensional, color flow and Doppler transthoracic echocardiogram is performed. ? 2. Normal left ventricular size and thickness with hyperdynamic left ventricular contractility.? No segmental wall motion abnormalities.? Ejection fraction greater than 70%.? Normal diastolic function. ? 3. No significant valve disease. ? 4. Normal sinus rhythm. Review of Systems Review of Systems: Decreased appetite but no nausea, vomiting, chest pain, shortness of breath, abdominal pain. Exam Narrative: Pleasant young woman in no distress, at the bedside Const: General: cooperative, healthy appearing and comfortable; No confusion Orientation/consciousness: oriented to person, patient oriented x3 and No confusion HENMT: Mouth: Yes moist mucous membranes Eyes: General: appearance normal, both eyes and all related structures Neck: Neck: supple Resp: Effort & Inspection: normal respiratory effort Auscultation: clear to auscultation bilaterally Cardio: Rate: regular rate Rhythm: regular rhythm GI: Inspection: normal to inspection GI Palp: No abdominal tenderness Skin: General skin exam: normal color and no rashes or lesions noted Neuro: General: oriented to person, patient oriented x3 and No confusion Extrem: Right lower extremit
[2023-06-21 14:10] LABS: Glucose Point of Care 99 mg/dl (65-105)
--- NOTE | 2023-07-06 15:31 | PM.DS ---
DS: Admitting Diagnosis Discharge Date 06/21/23 Admitting Diagnosis Syncope DS: Discharge Diagnosis Discharge Diagnosis (1) Syncope: Qualifiers: Syncope type: unspecified Qualified Code(s): R55 - Syncope and collapse Code(s): R55 - Syncope and collapse Status: Acute (2) Acute electrocardiogram changes: Code(s): R94.31 - Abnormal electrocardiogram [ECG] [EKG] Status: Acute (3) Nausea and vomiting: Code(s): R11.2 - Nausea with vomiting, unspecified Status: Acute (4) Depression: Code(s): F32.A - Depression, unspecified Status: Acute (5) Hypothyroidism: Code(s): E03.9 - Hypothyroidism, unspecified Status: Acute (6) Pre-diabetes: Code(s): R73.03 - Prediabetes Status: Acute Plan Patient with syncopal episode after walking to the bathroom. She has been ill with GI symptoms. Syncope may be related to vasovagal from a gastroenteritis. Suspect the QT prolongation is related to the emerging of the T-wave in P wave. Will hold Lexapro and stop Zofran. Patient does have lateral EKG findings however so consider cardiac etiology. Unlikely related to severe vavlular disease. Troponins x2 are negative. Will check D-dimer. Check echocardiogram. Cardiology consult. We will check 3rd troponin. Consider hypoglycemia but she has been eating despite the n/v. Consider also seizure though no history of seizures and no history of substance use. No tongue biting or urine incontinence to suggest this either. Will place on diabetic diet. Check A1c. Add sliding scale protocol. Will check urine drug screen for completeness although her history does not suggest this. Continue Synthroid. Will check TSH. Will check procalcitonin and blood cultures to exclude infectious etiology. If workup is negative, consider stress test in the morning. Nausea appears to have resolved and nothing concerning on exam. Consider further workup if her symptoms recur. SCD for DVT prophylaxis. DS: Summary Hospital Course Hospital Course: 53yo female with anxiety, DDD and hypothyroidism was brought into the emergency room by EMS after having a syncopal episode at home.? Patient was feeling well up until the day before admission when she had body aches, frontal headaches and nausea/vomiting.? Patient with syncopal episode after walking to the bathroom.? She has been ill with GI symptoms.? Syncope may be related to vasovagal from a gastroenteritis.? Suspect the QT prolongation is related to the emerging of the T-wave in P wave. Will hold Lexapro and stop Zofran. Patient does have lateral EKG findings however so consider cardiac etiology. Unlikely related to severe vavlular disease. Troponins x2 are negative.? Will check D-dimer.? Check echocardiogram.? Cardiology consult.? We will check 3rd troponin.? Consider hypoglycemia but she has been eating despite the n/v. Consider also seizure though no history of seizures and no history of substance use. No tongue biting or urine incontinence to suggest this either. Will place on diabetic diet.? Check A1c.? Add sliding scale protocol.? Will check urine drug screen for completeness although her history does not suggest this.? Continue Synthroid.? Will check TSH.? Will check procalcitonin and blood cultures to exclude infectious etiology.? If workup is negative, consider stress test in the morning. Nausea appears to have resolved and nothing concerning on exam. Consider further workup if her symptoms recur.? SCD for DVT prophylaxis. Two syncopal events last night and she describes pre-syncope yesterday after picking tomatoes from her garden.? Became light headed and diaphoretic after standing up.? Symptoms resolved with lying down and elevating feet.? She denies experiencing any chest pain or palpitations surrounding these events.? Her telemetry shows sinus rhythm, no tachy or bradyarrhythmias noted thus far.? Continue to monitor telemetry.? Syncope most likely n
== END 2023-06-21 14:35 | disposition home or self-care (01) ==
LOC: ANHED 05:49 → ANHIMU 08:09
PROVIDERS: Internal Medicine; Admitting Provider Internal Medicine; Emergency Provider Emergency Medicine; PCP Nurse Practitioner Family; Visit Provider Student in an Organized Health Care Education/Training Program
DX: R55 Syncope and collapse (principal); R94.31 Abnormal electrocardiogram [ECG] [EKG]; R11.2 Nausea with vomiting, unspecified; R00.0 Tachycardia, unspecified; F41.8 Other specified anxiety disorders; E03.9 Hypothyroidism, unspecified; R73.03 Prediabetes; M79.10 Myalgia, unspecified site; R53.83 Other fatigue; R50.9 Fever, unspecified; R42 Dizziness and giddiness; Z20.822 Contact with and (suspected) exposure to COVID-19; J81.1 Chronic pulmonary edema; K44.9 Diaphragmatic hernia without obstruction or gangrene; M50.30 Other cervical disc degeneration, unspecified cervical region; R61 Generalized hyperhidrosis; K21.9 Gastro-esophageal reflux disease without esophagitis; Z79.1 Long term (current) use of non-steroidal anti-inflammatories (NSAID); Z79.899 Other long term (current) drug therapy; Z83.3 Family history of diabetes mellitus; Z82.49 Family history of ischemic heart disease and other diseases of the circulatory system
CPT/HCPCS: 36415; 71045; 71275; 78452; 80053; 80307; 81003; 81025; 82948; 83036; 83605; 84145; 84439; 84443; 84480; 84484; 85025; 85380; 87040; 87637; 93005; 93017; 93306; 96361; 96372; 96374; 99285; A9270; A9502; G0378; J1885; J2405; J7030; Q9967